=== PATIENT | female | born 1960 | race Caucasian/White ===

== ENCOUNTER 2021-11-24 11:58 | Emergency (ER) | payer OTHER ==
[~2021-11-24 11:58] MED LIST: EPIPEN0.3 MG/0.3 SC; FORTEO2.4 ML SC; LINZESS290 MCG PO; LORATADINE10 M2 PO; NASONEX NAS120 PUFFS; OCEAN37.5 ML; ONDANSETRON ODT8 MG PO; POTASSIUM10 MEQ/100 IV; PROTONIX 40MG T40 MG PO; QVAR8.7 G1 INH; SINGULAIR10 MG PO; VENTOLIN HFA IN18 GM INH; VITAMIN D50000 UNIT PO; XOPENEX (11.25 MG/3 INH
[2021-11-24 12:52] LABS: BASOPHIL 0.3 % (0-2); EOSINOPHIL 2.6 % (0-5); HCT 33.6 % (37.0-47.0); LYMPHOCYTE 17.2 % (15-48); MCH 29.4 pg (25.0-31.0); MCHC 32.7 g/dL (32.0-36.0); MCV 89.8 fL (78.0-100.0); MPV 9.8 fL (6.0-9.5); NEUTROPHIL 74.5 % (41-80); NRBC 0; PLT 218 K/uL (150-400); RBC 3.74 M/uL (4.20-5.40); WBC 9.4 K/uL (4.0-10.5)
[2021-11-24 13:17] LABS: BILIRUBIN - TOTAL 0.5 mg/dL (0.2-1.0); BUN/CREAT RATIO (CALC) 12.1 RATIO; CREATININE 1.49 mg/dL (0.51-0.95); GLOBULIN (CALCULATION) 3.1 g/dL; POTASSIUM 3.6 mmol/L (3.5-5.1); TOTAL PROTEIN 6.1 g/dL (6.4-8.2)
[2021-11-24 13:38] LABS: BILIRUBIN NEGATIVE (NEGATIVE); BLOOD TRACE-INTACT Ery/uL (NEGATIVE); CLARITY CLEAR (CLEAR); COLOR YELLOW (YELLOW); GLUCOSE (U) NORMAL (NORMAL); LEUKOCYTES NEGATIVE Leu/uL (NEGATIVE); NITRITE NEGATIVE (NEGATIVE); PROTEIN TRACE (LOW) mg/dL (NEGATIVE); SPECIFIC GRAVITY >=1.030 (1.001-1.030); UROBILINOGEN 0.2 mg/dL (0.2-1.0)
[2021-11-24 14:02] LABS: BACTERIA 1+; GRANULAR CASTS TRACE; MUCOUS TRACE
[2021-11-24] MEDS ORDERED: NORCO 5-325 TA1 EACH PO (17:15)
== END 2021-11-24 17:45 | disposition home or self-care (01) ==
LOC: FER 11:58
PROVIDERS: Nurse Practitioner Family
DX: R10.84 Generalized abdominal pain (principal); Z93.1 Gastrostomy status; Z88.8 Allergy status to other drugs, medicaments and biological substances
CPT/HCPCS: 36415; 80053; 81001; 83690; 85025; 87088; J2270; J2405; J7030